=== PATIENT | male | born 1965 | race Caucasian/White ===

== ENCOUNTER 2017-09-11 11:34 | Emergency (ER) | payer MEDICAID ==
[~2017-09-11] VITALS: Ht 175.3 cm; Wt 88.5 kg
[2017-09-11 11:34] VITALS: BP_SYST 132
--- NOTE | 2017-09-11 11:34 | NUR ---
BROUGHT BACK TO BED #5 AND TRIAGED. REPORT GIVEN TO MANUEL
--- NOTE | 2017-09-11 11:35 | NUR ---
Pt AAOx3, states, "I have psychosis." Pt c/o left knee and back pain 05/14 "since earlier today," states no acute distress at this time. Pt states, "I just need a shot and I'm good." No obvious deformities noted in bilateral legs or back. Pulses present on BLE. No other complaints or injuries stated by pt or noted.
--- NOTE | 2017-09-11 11:40 | NUR ---
ER Dr. Apple at bedside examining patient.
[2017-09-11] MEDS ORDERED: KETOROLAC TROMETHAMINE 60 MG/2 ML VIAL IM ONE (11:45)
[2017-09-11 12:28] VITALS: BP_SYST 132
--- NOTE | 2017-09-11 12:28 | NUR ---
Patient given written and verbal discharge instructions and verbalizes understanding. ER MD discussed with patient the results and treatment provided. Patient in stable condition. ID arm band removed. Rx of ibuprofen given. Patient educated on pain management and to follow up with PMD. Pain Scale 0/10. Opportunity for questions provided and answered.
== END 2017-09-11 12:27 | disposition home or self-care (01) ==
LOC: SED 11:34
DX: G89.29 Other chronic pain (principal); M54.5 Low back pain; Z88.6 Allergy status to analgesic agent
CPT/HCPCS: 96372; 99283; J1885